=== PATIENT | male | born 1995 | race Hispanic/Latino ===

== ENCOUNTER 2022-08-20 08:57 | Emergency (ER) | payer OTHER ==
[~2022-08-20] VITALS: Ht 190.5 cm; Wt 102.1 kg
[2022-08-20 08:59] VITALS: BP 159/92
[2022-08-20 09:18] LABS: BASOPHILS % (AUTO) 0.3 % (0.0-5.0); EOSINOPHILS % (AUTO) 0.1 % (0.0-8.0); HEMATOCRIT 50.2 % (42-54); MEAN CORPUSCULAR HEMOGLOBIN 31.2 pg (27.0-33.0); MEAN CORPUSCULAR HGB CONC 36.1 g/dL (32.0-36.0); MEAN CORPUSCULAR VOLUME 86.4 fL (79-99); MONOCYTES % (AUTO) 7.2 % (3.0-13.0); NEUTROPHILS % (AUTO) 88.7 % (40.0-77.0); PLATELET COUNT (AUTO) 212 K/uL (130-400); RED BLOOD CELL COUNT(AUTO) 5.81 MIL/uL (4.50-6.20); RED CELL DISTRIBUTION WIDTH 11.9 % (11.0-15.5); WHITE BLOOD COUNT (AUTO) 12.1 K/uL (4.8-10.8)
[2022-08-20 09:20] LABS: APPEARANCE,URINE CLEAR (CLEAR); BILIRUBIN,URINE NEGATIVE (NEGATIVE); COLOR,URINE YELLOW (YELLOW); GLUCOSE, URINE (UA) NEGATIVE (NEGATIVE); KETONES,URINE NEGATIVE (NEGATIVE); LEUKOCYTE ESTERASE ,URINE NEGATIVE Leu/uL (NEGATIVE); NITRATE,URINE NEGATIVE (NEGATIVE); OCCULT BLOOD,URINE NEGATIVE (NEGATIVE); PROTEIN,URINE 30 mg/dL (NEGATIVE); UROBILINOGEN,URINE 0.2 mg/dL (0.2-1.0)
[2022-08-20 09:27] LABS: MUCUS,URINE RARE LPF (None Seen)
[2022-08-20] MEDS ORDERED: 0.9%NACL 1000ML 1,000 ML IV ONE (09:30)
[2022-08-20] MEDS ORDERED: ONDANSETRON 4MG INJ IVP ONE ×2 (09:30)
[2022-08-20] MEDS ORDERED: MAG/ALUM/SIMETH 30 ML UDCUP PO ONE (09:30)
[2022-08-20] MEDS ORDERED: LIDOCAINE HCL 2% VISCOUS 15 ML UDCUP PO ONE (09:30)
[2022-08-20 10:05] LABS: ALANINE AMINOTRANSFERASE 182 U/L (12-78); ASPARTATE AMINOTRANSFERASE 102 U/L (10-37); CARBON DIOXIDE 25 mmol/L (21-32); CHLORIDE 97 mmol/L (101-111); CREATININE 1.1 mg/dL (0.5-1.5); GLOMERULAR FILTR. RATE CALC 94 mL/min (>90); GLUCOSE,RANDOM 102 mg/dL (70-105); POTASSIUM 4.1 mmol/L (3.5-5.1); SODIUM SERUM 131 mmol/L (136-145); UREA NITROGEN, BLOOD 24 mg/dL (7-18)
[2022-08-20 10:15] LABS: LIPASE < 50 U/L (114-286)
[2022-08-20] MEDS ORDERED: DICY10 PO (10:31)
[2022-08-20] MEDS ORDERED: PANT40TA55 PO (10:31)
== END 2022-08-20 10:51 | disposition home or self-care (01) ==
LOC: EDH 08:57
DX: K52.9 Noninfective gastroenteritis and colitis, unspecified (principal); R11.2 Nausea with vomiting, unspecified
CPT/HCPCS: 99283; 96374; 80053; 83690; 85025; 81001; 36415; J7030; J2405

== ENCOUNTER 2023-10-14 20:36 | Emergency (ER) | payer OTHER ==
[~2023-10-14] VITALS: Ht 190.5 cm; Wt 107.0 kg
[~2023-10-14 20:36] MED LIST: DICY10 PO; PANT40TA55 PO
[2023-10-14] MEDS: 0.9%NACL 1000ML 3,210 ML IV ONE (21:07)
[2023-10-14] MEDS: cefTRIAXone 1G VIAL IVPB STA (21:07)
[2023-10-14] MEDS: acetaMINOPHEN 500 MG TABLET PO ONE (21:08)
[2023-10-14 21:09] LABS: APPEARANCE,URINE CLEAR (CLEAR); BILIRUBIN,URINE NEGATIVE (NEGATIVE); COLOR,URINE YELLOW (YELLOW); GLUCOSE, URINE (UA) NEGATIVE (NEGATIVE); KETONES,URINE 10 mg/dL (NEGATIVE); LEUKOCYTE ESTERASE ,URINE NEGATIVE Leu/uL (NEGATIVE); NITRATE,URINE NEGATIVE (NEGATIVE); OCCULT BLOOD,URINE NEGATIVE (NEGATIVE); PH,URINE 6.5 (5.0-8.0); PROTEIN,URINE 20 mg/dL (NEGATIVE)
[2023-10-14 21:09] LABS: BASOPHILS # (AUTO) 0.02 K/uL (0.00-0.20); BASOPHILS % (AUTO) 0.2 % (0.0-5.0); EOSINOPHILS # (AUTO) 0.03 K/uL (0.00-0.70); EOSINOPHILS % (AUTO) 0.3 % (0.0-8.0); HEMATOCRIT 47.6 % (42-54); IMMATURE GRANULOCYTE ABSOLUTE 0.04 K/uL (0-1); LYMPHOCYTES # (AUTO) 0.5 K/uL (1.0-4.8); LYMPHOCYTES % (AUTO) 4.8 % (21.0-51.0); MEAN CORPUSCULAR HEMOGLOBIN 31.9 pg (27.0-33.0); MEAN CORPUSCULAR HGB CONC 36.6 g/dL (32.0-36.0); MEAN CORPUSCULAR VOLUME 87.2 fL (79-99); MONOCYTES # (AUTO) 0.5 K/uL (0.1-1.0); MONOCYTES % (AUTO) 4.9 % (3.0-13.0); NEUTROPHILS # (AUTO) 8.5 K/uL (1.8-7.7); NEUTROPHILS % (AUTO) 89.4 % (40.0-77.0); PLATELET COUNT (AUTO) 183 K/uL (130-400); RED BLOOD CELL COUNT(AUTO) 5.46 MIL/uL (4.50-6.20); RED CELL DISTRIBUTION WIDTH 11.8 % (11.0-15.5); WHITE BLOOD COUNT (AUTO) 9.5 K/uL (4.8-10.8)
[2023-10-14 21:12] LABS: ADD UA MICROSCOPIC YES
[2023-10-14 21:16] LABS: MUCUS,URINE RARE LPF (None Seen); WBC,URINE 0-1 /HPF (0-1)
[2023-10-14 21:23] LABS: CREATININE 1.1 mg/dL (0.5-1.3); POTASSIUM 3.5 mmol/L (3.5-5.1)
[2023-10-14 21:37] VITALS: TEMP 102.1
[2023-10-15 00:36] LABS: RAPID GROUP A STREP negative (NEGATIVE)
[2023-10-15 00:38] LABS: SARS-CoV-2, RNA, NAAT NEGATIVE SARS CoV-2 (NEGATIVE)
[2023-10-15 00:45] LABS: INFLUENZA TYPE A Negative For Type A (NEGATIVE); INFLUENZA TYPE B Negative For Type B (NEGATIVE)
[2023-10-15] MEDS: ONDANSETRON 4MG INJ IVP ONE (01:22)
[2023-10-15] MEDS ORDERED: ONDA-243 PO (01:29)
[2023-10-15] MEDS ORDERED: ACET-66 PO (01:29)
[2023-10-15] MEDS ORDERED: IOHEXOL 350 MG/ML 100ML INFUS..BTL IV ONE (01:58)
[2023-10-15] MEDS: PROMETHAZINE HCL 25 MG/ML 1ML AMPULE IM ONE (03:46)
[2023-10-15 03:55] VITALS: BP 120/66; PULSE 80; RESP 18; O2SAT 98
[2023-10-15] MEDS ORDERED: METR-172 PO (04:50)
[2023-10-15] MEDS ORDERED: CIPR-279 PO (04:50)
== END 2023-10-15 05:29 | disposition home or self-care (01) ==
LOC: EDH 20:36
DX: K52.9 Noninfective gastroenteritis and colitis, unspecified (principal); Z20.822 Contact with and (suspected) exposure to COVID-19; R11.2 Nausea with vomiting, unspecified; K21.9 Gastro-esophageal reflux disease without esophagitis; Z79.899 Other long term (current) drug therapy
CPT/HCPCS: 99285; 96365; 71045; 87635; 82550; 84484; 80048; 83690; 85025; 87040; 87086; 87880; 87804 ×2; 83605; 81001; 36415; 74177; 96375; 96372; J7030; J0696; J2550; J2405; Q9967

== ENCOUNTER 2024-07-17 17:50 | Emergency (ER) | payer OTHER ==
[~2024-07-17] VITALS: Ht 190.5 cm; Wt 111.1 kg
[~2024-07-17 17:50] MED LIST changes: +ACET-66 PO; +CIPR-279 PO; +METR-172 PO; +ONDA-243 PO
[2024-07-17] MEDS ORDERED: acetaMINOPHEN 500 MG TABLET PO ONE (18:00)
[2024-07-17] MEDS: ibuPROFEN 600 MG TABLET PO SCH (18:17)
[2024-07-17] MEDS: 0.9%NACL 1000ML 1,000 ML IV SCH (18:17)
[2024-07-17 18:22] LABS: BASOPHILS # (AUTO) 0.03 K/uL (0.00-0.20); BASOPHILS % (AUTO) 0.2 % (0.0-5.0); HEMATOCRIT 42.1 % (42-54); IMMATURE GRANULOCYTE ABSOLUTE 0.09 K/uL (0-1); LYMPHOCYTES # (AUTO) 0.6 K/uL (1.0-4.8); MEAN CORPUSCULAR HEMOGLOBIN 32.1 pg (27.0-33.0); MEAN CORPUSCULAR HGB CONC 36.6 g/dL (32.0-36.0); MEAN CORPUSCULAR VOLUME 87.7 fL (79-99); MONOCYTES # (AUTO) 1.3 K/uL (0.1-1.0); MONOCYTES % (AUTO) 8.4 % (3.0-13.0); NEUTROPHILS # (AUTO) 13.5 K/uL (1.8-7.7); NEUTROPHILS % (AUTO) 86.8 % (40.0-77.0); PLATELET COUNT (AUTO) 161 K/uL (130-400); WHITE BLOOD COUNT (AUTO) 15.5 K/uL (4.8-10.8)
[2024-07-17 18:28] LABS: CREATININE 1.1 mg/dL (0.5-1.3); POTASSIUM 3.6 mmol/L (3.5-5.1)
[2024-07-17 18:42] LABS: RAPID GROUP A STREP negative (NEGATIVE)
[2024-07-17 18:43] LABS: SARS-CoV-2, RNA, NAAT NEGATIVE SARS CoV-2 (NEGATIVE)
--- NOTE | 2024-07-17 18:45 | ERN ---
General Chief Complaint: Fever Stated Complaint: FEVER Time Seen by MD: 17:52 Source: patient History of Present Illness Initial Comments PATIENT IS A 29-YEAR-OLD MALE COMING IN TO BE EVALUATED FOR FEVER. PATIENT STATES THAT HE STILL FEELS BAD IN HIS ISN'T BEEN BETTER AFTER VISITING HIS PCP. HE SAID HE GOT AN INJECTION. Allergies: Coded Allergies: No Known Drug Allergies (Unverified Allergy, Unknown, 08/20/22) Home Meds Active Scripts Metronidazole (Metronidazole) 500 Mg Tablet, 500 MG PO TID for colitis for 7 Days, #21 TAB Prov:EDI GOODE MD 10/15/23 Ciprofloxacin HCl (Cipro) 250 Mg Tablet, 250 MG PO BID for 7 Days, #14 TAB Prov:EDI GOODE MD 10/15/23 Ondansetron (Ondansetron Odt) 4 Mg Tab.rapdis, 4 MG PO QIDP PRN for NAUSEA, #20 TAB Prov:KERRY MAJOR 10/15/23 Acetaminophen (Acetaminophen) 500 Mg Tablet, 500 MG PO QIDP PRN for FEVER, #30 TAB Prov:KERRY MAJOR 10/15/23 Pantoprazole Sodium (Protonix) 40 Mg Ectab, 40 MG PO DAILY for 30 Days, #30 TAB.EC Prov:VLADIMIR CAST MD 08/20/22 Dicyclomine HCl (Bentyl) 10 Mg Cap, 10 MG PO BID PRN for abd pain for 5 Days, #10 CAP Prov:VLADIMIR CAST MD 08/20/22 Past Medical History Past Medical History: GERD, Other Medical History Other: HX OF GERD Past Surgical History: None Social History Social History: Negative, Lives with family ROS Dictation CONSTITUTIONAL: NO CHILLS, NO FEVER, NO WEAKNESS, NO DIAPHORESIS, NO MALAISE. HEAD/FACE: NO SIGNS OF TRAUMA. EENT: NO EYE PAIN, NO BLURRED VISION, NO TEARING, NO DOUBLE VISION, NO EAR PAIN, NO EAR DISCHARGE, NO NOSE PAIN, NO NASAL CONGESTION, NO THROAT PAIN, NO THROAT SWELLING, NO MOUTH PAIN. RESPIRATORY: NO COUGH, NO ORTHOPNEA, NO SOB, NO STRIDOR, NO WHEEZING. CARDIOVASCULAR: NO CHEST PAIN, NO EDEMA, NO PALPITATIONS, NO SYNCOPE. GASTROINTESTINAL/ABDOMINAL: NO ABDOMINAL PAIN, NO CONSTIPATION, NO DIARRHEA, NO NAUSEA, NO VOMITING. GENITOURINARY: NO ABNORMAL DISCHARGE, NO DYSURIA, NO FREQUENT URINATION, NO HEMATURIA. NO COMPLAINTS OF PAIN IN THE GENITALS. MUSCULOSKELETAL: NO BACK PAIN, NO GOUT, NO JOINT PAIN, NO JOINT SWELLING, NO MUSCLE PAIN, NO MUSCLE STIFFNESS, NO NECK PAIN. INTEGUMENTARY: NO CHANGE IN COLOR, NO CHANGE IN HAIR/NAILS, NO DRYNESS, NO LESION, NO LUMPS, NO RASH. NEUROLOGICAL/PSYCH: NO ANXIETY, NOT DEPRESSED, NO EMOTIONAL PROBLEM, NO HEADACHE, NO NUMBNESS, NO PRE-EXISTING DEFICIT, NO HISTORY OF SEIZURES, NO TREMORS, NO WEAKNESS. HEMATOLOGIC/LYMPHATIC: NOT ANEMIC, NO HISTORY OF BLOOD CLOTS, NO APPARENT BLEEDING, NO BRUISING, GLANDS NOT SWOLLEN. ALL SYSTEMS NEGATIVE, EXCEPT NOTED. Physical Exam Physical Exam Dictation VITAL SIGNS: REVIEWED. GENERAL APPEARANCE: ALERT, ORIENTED X3, NO ACUTE DISTRESS, OBESE. HEAD AND FACE: NON-TRAUMATIC. EYES: PERRL, PINK CONJUNCTIVAS, EYELID NO TRAUMA, ANTERIOR CHAMBER CLEAR. EARS: PINNAS INTACT AND NO SIGNS OF TRAUMA OR ERYTHEMA. EAR CANALS CLEAR AND NO DISCHARGE. TMS NO ERYTHEMA. NOSE: NO DISCHARGE, NO BLEEDING. OROPHARYNX: MOUTH NORMAL, TEETH NO CARIES, TONGUE PINK. PHARYNX CLEAR, NO ERYTHEMA. TONSILS NO EXUDATES, NO ABSCESSES NOTED. MUCOUS MEMBRANE MOIST. NECK: SUPPLE, NON-TENDER, NO THYROMEGALY, NO MASSES, NO JVD, NO BRUITS. BREAST: DEFERRED. CHEST: NO TENDERNESS, NO CREPITUS, NO PARADOXICAL MOVEMENT, NO RETRACTIONS. LUNGS: CLEAR, WELL-VENTILATED, SYMMETRIC, NO RALES, NO WHEEZING, NO RHONCHI, NO STRIDOR, GOOD BREATH SOUNDS BILATERALLY. HEART: REGULAR RATE, REGULAR RHYTHM, NO MURMUR, NO GALLOPS. VASCULAR: NO PERIPHERAL EDEMA. ABDOMEN: SOFT, POSITIVE BOWEL SOUNDS, NONDISTENDED, NO GUARDING, NONTENDER, NO REBOUND, NO MASSES NO HEPATOMEGALY, NO SPLENOMEGALY, NO WHITE'S SIGN, NO HERNIAS. RECTAL: DEFERRED. GENITAL: DEFERRED. NEUROLOGICAL: NORMAL SPEECH, GROSS MOTOR FUNCTION INTACT, GROSS SENSORY FUNCTION INTACT. MUSCULOSKELETAL: NECK NONTENDER, FULL RANGE OF MOTION, BACK NONTENDER, FULL RANGE OF MOTION. EXTREMITIES: NONTENDER, FULL RANGE OF MOTION. SKIN: COLOR PINK, DRY, NO TURGOR, NO RASH, NO LACERATIONS, NO ABRASIONS, NO CONTUSIONS. LYMPHATICS: DEFERRED. Results Laboratory and Microbiology Lab and Micro Result Laboratory Tests Test 07/17/24 18:07 07/17/24 18:09 07/17/24 19:13 White Blood Count 15.5 K/uL (4.8-10.8) H Red Blood Count 4.80 MIL/uL (4.50-6.20) Hemoglobin 15.4 g/dL (14.0-18.0) Hematocrit 42.1 % (42-54) Mean Corpuscular Volume 87.7 fL (79-99) Mean Corpuscular Hemoglobin 32.1 pg (27.0-33.0) Mean Corpuscular Hemoglobin Concent 36.6 g/dL (32.0-36.0) H Red Cell Distribution Width 12.0 % (11.0-15.5) Platelet Count 161 K/uL (130-400) Mean Platelet Volume 10.3 fL (7.5-10.5) Immature Granulocyte % (Auto) 0.6 % (0-1) Neutrophils (%) (Auto) 86.8 % (40.0-77.0) H Lymphocytes (%) (Auto) 4.0 % (21.0-51.0) L Monocytes (%) (Auto) 8.4 % (3.0-13.0) Eosinophils (%) (Auto) 0.0 % (0.0-8.0) Basophils (%) (Auto) 0.2 % (0.0-5.0) Neutrophils # (Auto) 13.5 K/uL (1.8-7.7) H Lymphocytes # (Auto) 0.6 K/uL (1.0-4.8) L Monocytes # (Auto) 1.3 K/uL (0.1-1.0) H Eosinophils # (Auto) 0.00 K/uL (0.00-0.70) Basophils # (Auto) 0.03 K/uL (0.00-0.20) Absolute Immature Granulocyte (auto 0.09 K/uL (0-1) Nucleated Red Blood Cells 0.0 % (0.0-0.19) White Cell Morphology Comment See comments Red Blood Cell Morphology See comments Sodium Level 134 mmol/L (136-145) L Potassium Level 3.6 mmol/L (3.5-5.1) Chloride Level 101 mmol/L (101-111) Carbon Dioxide Level 24 mmol/L (21-32) Blood Urea Nitrogen 18 mg/dL (7-18) Creatinine 1.1 mg/dL (0.5-1.3) Glomerular Filtration Rate Calc 93 mL/min (>90) Random Glucose 110 mg/dL (70-105) H Total Calcium 8.7 mg/dL (8.5-10.1) C-Reactive Protein, Quantitative 50.80 mg/L (0.5-3.0) H Procalcitonin 0.29 ng/mL (0.05-0.5) Influenza Type A Antigen Negative For Type A Influenza Type B Antigen Negative For Type B SARS-CoV-2, RNA, NAAT NEGATIVE SARS CoV-2 Group A Streptococcus Rapid negative (NEGATIVE) Urine Color YELLOW (YELLOW) Urine Appearance CLOUDY (CLEAR) H Urine pH 6.0 (5.0-8.0) Urine Specific Barlow 1.042 (1.001-1.031) Urine Protein 50 mg/dL (NEGATIVE) H Urine Glucose (UA) NEGATIVE mg/dL (NEGATIVE) Urine Ketones 20 mg/dL (NEGATIVE) H Urine Occult Blood SMALL (NEGATIVE) H Urine Nitrate NEGATIVE (NEGATIVE) Urine Bilirubin NEGATIVE mg/dL (NEGATIVE) Urine Urobilinogen 0.2 mg/dL (0.2-1.0) Urine Leukocyte Esterase NEGATIVE Carmen/uL Urine RBC 6-10 /HPF (0-1) H Urine WBC 2-5 /HPF (0-1) H Urine Other Crystals (Auto) 7 /HPF (None Seen) Urine Amorphous Crystals (Auto) RARE /LPF (None Seen) Urine Bacteria RARE /HPF (None Seen) Urine Other Casts 1 /LPF (None Seen) MDM MDM: DIFFERENTIAL DIAGNOSIS: RATIONALE: TESTS CONSIDERED AND ORDERED SECONDARY TO SHARED DECISION MAKING INCLUDE: LABS, ECG AND RADIOLOGY PREVIOUS OUTSIDE RECORDS REVIEWED: OLD ER VISITS. RISK OF COMPLICATION AND/OR MORBIDITY OR MORTALITY OF PATIENT MANAGEMENT: NONE MEDICATIONS-PER MEDICATION RECONCILIATION NEED FOR HOSPITALIZATION: PATIENT DOES MEET CRITERIA FOR HOSPITALIZATION. NEED FOR EMERGENCY MAJOR/MINOR SURGERY: NO THERE ARE NO SOCIAL CONCERNS WITH THIS PATIENT. PRESCRIPTION DRUG MANAGEMENT PRESCRIPTIONS WILL INCLUDE SYMPTOMATIC CARE PATIENT'S PRIOR EXTERNAL MEDICAL RECORDS FROM OTHER ER VISITS WERE REVIEWED BY ME INDICATED. PRIOR TESTING AND RESULTS FROM PREVIOUS VISITS WERE REVIEWED. PRIOR TESTS WERE TAKEN INTO ACCOUNT WITH MEDICAL DECISION MAKING AND RESOURCE UTILIZATION, INDEPENDENT HISTORIAN/HISTORIANS WERE USED TO OBTAIN COMPLETE MEDICAL HISTORY. I INDEPENDENTLY INTERPRETED THE TEST THAT WERE PERFORMED, RESULTS WERE REVIEWED BY ME AND CONSIDERED FINDINGS ON RADIOLOGY IF ORDERED. MEDICAL MANAGEMENT AND EXAMINATION INTERPRETATION DISCUSSIONS WERE HAD BY ME WITH OTHER QUALIFIED HEALTHCARE PROFESSIONALS INDICATED FOR THE PATIENT'S CARE. Patient's nasal swabs were negative for COVID strep and influenza. Chest x-ray is also negative. Looking at the chest x-ray you can see dilated loops of large bowel and small bowel consistent with a an ileus. Patient did have a elevated white blood cell count of 15. Along with a mild left shift. Chemistry panel is negative. Urine analysis is also negative. I ordered a CRP and a procalcitonin. The CRP was elevated a procalcitonin was low. Patient most likely does not have a bacterial infection and is at low risk for sepsis. I explained all of this to the patient. Given the amount of time that has passed since the KUB was ordered we decided to have him follow-up with his family practice doctor and defer the KUB. ED Course Orders Procedure Category Date Status Time Cbc With Differential LAB 07/17/24 Complete 17:55 Basic Metabolic Panel LAB 07/17/24 Complete 17:55 Urinalysis LAB 07/17/24 Complete W/Microscopic 17:55 Covid Rna Naat LAB 07/17/24 Complete 17:55 Influenza Type A & B, LAB 07/17/24 Complete Rapid 17:55 Rapid (Group A Strep) LAB 07/17/24 Complete 17:55 0.9%Nacl 1000ml (Ns PHA 07/17/24 In Process 1000ml) 18:00 Acetaminophen 500mg PHA 07/17/24 Complete Tab (Tylenol 500mg T 18:00 Ibuprofen 600 Mg PHA 07/17/24 In Process Tablet (Motrin) 18:30 Chest 1vw RAD 07/17/24 Taken 19:42 Crp Quantitative LAB 07/17/24 Complete 19:52 Procalcitonin LAB 07/17/24 Complete 19:52 Abd 1vw RAD 07/17/24 Logged 20:47 Current Medications Medications (Trade) Dose Ordered Sig/Mary Route PRN Reason Start Time Stop Time Status Last Admin Dose Admin Acetaminophen (TYLenol 500MG TAB) 1,000 mg ONCE ONCE PO 07/17/24 18:00 07/17/24 18:11 DC Ibuprofen (moTRIN) 600 mg ONCE PO 07/17/24 18:30 07/17/24 22:30 07/17/24 18:17 Sodium Chloride 1,000 ml @ 0 mls/hr ONCE IV 07/17/24 18:00 07/18/24 17:59 07/17/24 18:17 Vital Signs Date Time Temp Pulse Resp B/P (MAP) Pulse Ox O2 Delivery O2 Flow Rate FiO2 07/17/24 20:24 99.1 84 18 108/62 97 Room Air* 0 21 07/17/24 19:15 100.0 96 18 114/69 97 Room Air* 0 07/17/24 18:06 101.5 117 18 99/67 97 Room Air* 0 07/17/24 17:55 101.5 117 18 99/67 97 Room Air 0 DX & DISP Disposition: Discharge Departure Impression: Primary Impression: Viral syndrome Condition: Stable Additional Instructions: Please return to the hospital if you do not start to improve in the next few days. Your fever can be controlled with Tylenol or Motrin. There was no need for antibiotics as you procalcitonin level is normal. Please return if you do not improve in the next few days. Referrals: SELF,REFERRAL (PCP) VLADIMIR CAST MD Jul 17, 2024 18:45 VANGIE NOEL MD Jul 17, 2024 21:53
[2024-07-17 18:52] LABS: INFLUENZA TYPE A Negative For Type A (NEGATIVE); INFLUENZA TYPE B Negative For Type B (NEGATIVE)
[2024-07-17 19:18] LABS: APPEARANCE,URINE CLOUDY (CLEAR); BILIRUBIN,URINE NEGATIVE (NEGATIVE); COLOR,URINE YELLOW (YELLOW); GLUCOSE, URINE (UA) NEGATIVE (NEGATIVE); KETONES,URINE 20 mg/dL (NEGATIVE); LEUKOCYTE ESTERASE ,URINE NEGATIVE Leu/uL (NEGATIVE); NITRATE,URINE NEGATIVE (NEGATIVE); OCCULT BLOOD,URINE SMALL (NEGATIVE); PROTEIN,URINE 50 mg/dL (NEGATIVE); UROBILINOGEN,URINE 0.2 mg/dL (0.2-1.0)
[2024-07-17 19:26] LABS: BACTERIA,URINE RARE /HPF (None Seen); MUCUS,URINE RARE LPF (None Seen); OTHER CASTS, URINE 1 /LPF (None Seen); UNCLASSIFIED CRYSTAL 7 /HPF (None Seen)
--- NOTE | 2024-07-17 21:56 | HMCIMG ---
INDICATION: cough fever TECHNIQUE: CHEST 1VW COMPARISON: 10/14/2023 FINDINGS AND IMPRESSION: Prominent bibasilar interstitial markings which may represent bronchitis or vascular congestion in the proper clinical setting. Cardiac silhouette is within normal limits. Mild degenerative changes of the spine. The visualized upper abdomen appears unremarkable.
[2024-07-17 21:57] VITALS: BP 111/58; PULSE 81; RESP 18; TEMP 98.2; O2SAT 97
== END 2024-07-17 21:58 | disposition home or self-care (01) ==
LOC: EDH 17:50
DX: B34.9 Viral infection, unspecified (principal); Z79.899 Other long term (current) drug therapy; Z20.822 Contact with and (suspected) exposure to COVID-19
CPT/HCPCS: 99284; 71045; 87635; 80048; 85025; 87880; 87804 ×2; 86140; 81001; 36415; 84145; J7030

== ENCOUNTER 2024-11-08 09:10 | Emergency (ER) | payer OTHER ==
[~2024-11-08] VITALS: Ht 190.5 cm; Wt 106.6 kg
--- NOTE | 2024-11-08 10:12 | ERN ---
General Chief Complaint: Ankle Problem Stated Complaint: LEFT ANKLE PAIN Time Seen by MD: 09:15 History of Present Illness Initial Comments 29-year-old male, otherwise healthy, presents for left ankle pain injury. Twisted his ankle yesterday. He woke up this morning with the pain and swelling to the lateral ankle. No high fibular head pain. Pain is in the lateral ankle and lateral foot. Closed. Neurovascularly intact. Allergies: Coded Allergies: No Known Drug Allergies (Unverified Allergy, Unknown, 08/20/22) Home Meds Active Scripts Metronidazole (Metronidazole) 500 Mg Tablet, 500 MG PO TID for colitis for 7 Days, #21 TAB Prov:EDI GOODE MD 10/15/23 Ciprofloxacin HCl (Cipro) 250 Mg Tablet, 250 MG PO BID for 7 Days, #14 TAB Prov:EDI GOODE MD 10/15/23 Ondansetron (Ondansetron Odt) 4 Mg Tab.rapdis, 4 MG PO QIDP PRN for NAUSEA, #20 TAB Prov:KERRY MAJOR 10/15/23 Acetaminophen (Acetaminophen) 500 Mg Tablet, 500 MG PO QIDP PRN for FEVER, #30 TAB Prov:KERRY MAJOR 10/15/23 Pantoprazole Sodium (Protonix) 40 Mg Ectab, 40 MG PO DAILY for 30 Days, #30 TAB.EC Prov:VLADIMIR CAST MD 08/20/22 Dicyclomine HCl (Bentyl) 10 Mg Cap, 10 MG PO BID PRN for abd pain for 5 Days, #10 CAP Prov:VLADIMIR CAST MD 08/20/22 Past Medical History Past Medical History: GERD, Other Medical History Other: HX OF GERD Past Surgical History: None Social History Social History: Negative, Lives with family ROS Dictation CONSTITUTIONAL: No chills, no fever, no weakness, no diaphoresis, no malaise. HEAD/FACE: No signs of trauma. EENT: No eye pain, no blurred vision, no tearing, no double vision, no ear pain, no ear discharge, no nose pain, no nasal congestion, no throat pain, no throat swelling, no mouth pain. RESPIRATORY: No cough, no orthopnea, no SOB, no stridor, no wheezing. CARDIOVASCULAR: No chest pain, no edema, no palpitations, no syncope. GASTROINTESTINAL/ABDOMINAL: No abdominal pain, no constipation, no diarrhea, no nausea, no vomiting. GENITOURINARY: No abnormal discharge, no dysuria, no frequent urination, no hematuria. No complaints of pain in the genitals. MUSCULOSKELETAL: Left ankle pain INTEGUMENTARY: No change in color, no change in hair/nails, no dryness, no lesion, no lumps, no rash. NEUROLOGICAL/PSYCH: No anxiety, not depressed, no emotional problem, no headache, no numbness, no pre-existing deficit, no history of seizures, no tremors, no weakness. HEMATOLOGIC/LYMPHATIC: Not anemic, no history of blood clots, no apparent bleeding, no bruising, glands not swollen. All Systems Negative, Except as Noted. Physical Exam Physical Exam Dictation VITAL SIGNS: Reviewed. GENERAL APPEARANCE: Alert, oriented x3, no acute distress HEAD AND FACE: Non-traumatic. EYES: PERRL, pink conjunctivas, eyelid no trauma, anterior chamber clear. EARS: Pinnas intact and no signs of trauma or erythema. Ear canals clear and no discharge. TMs no erythema. NOSE: No discharge, no bleeding. OROPHARYNX: Mouth normal, teeth no caries, tongue pink. Pharynx clear, no erythema. Tonsils no exudates, no abscesses noted. Mucous membrane moist. NECK: Supple, non-tender, no thyromegaly, no masses, no JVD, no bruits. BREAST: Deferred. CHEST: No tenderness, no crepitus, no paradoxical movement, no retractions. LUNGS: Clear, well-ventilated, symmetric, no rales, no wheezing, no rhonchi, no stridor, good breath sounds bilaterally. HEART: Regular rate, regular rhythm, no murmur, no gallops. VASCULAR: No peripheral edema. ABDOMEN: Soft, positive bowel sounds, nondistended, no guarding, nontender, no rebound, no masses no hepatomegaly, no splenomegaly, no Watson's sign, no hernias. RECTAL: Deferred. GENITAL: Deferred. NEUROLOGICAL: Normal speech, gross motor function intact, gross sensory function intact. MUSCULOSKELETAL: Neck nontender, full range of motion, back nontender, full range of motion. EXTREMITIES: Nontender, full range of motion. Left ankle swelling SKIN: Color pink, dry, no turgor, no rash, no lacerations, no abrasions, no contusions. LYMPHATICS: Deferred. MDM CC: Left ankle pain/injury Historian: Patient Comorbidities: None Limitations by social determinants of health: None Differential diagnosis: Ankle sprain versus strain versus fracture Vital signs are stable Neurovascularly intact Pain to the lateral malleolus. No signs of high fibular head pain. No foot pain or faint with the base of the 5th toe. X-ray per my independent interpretation shows no bony abnormality Symptoms most consistent with a high-grade strain. Given a cam boot here in the ER. We will discharge with conservative management and orthopedic follow up. ED Course Orders Procedure Category Date Status Time Ankle Comp 3vws Lt RAD 11/08/24 Taken 09:16 Vital Signs Date Time Temp Pulse Resp B/P (MAP) Pulse Ox O2 Delivery O2 Flow Rate FiO2 11/08/24 09:11 98.1 74 16 134/69 98 Room Air DX & DISP Disposition: Discharge Departure Impression: Primary Impression: Left ankle sprain Condition: Stable Additional Instructions: The x-ray does not show any fractures. Your symptoms are most consistent with a high-grade ankle sprain/strain. Wear the Cam boot they have been provided. You can take 800 mg of ibuprofen up to 3 times a day for pain inflammation. You can also take 1000 mg of Tylenol up to 3 times a day for pain. I recommend that you ice the ankle for at least 30 minutes 3 times per day for the next two days. This will reduce inflammation and swelling. You will likely need to follow up with the an orthopedist or your primary doctor. I have given you a referral to an orthopedist. Please return to the emergency department if you have any concerns. Referrals: NICOLE ROMAN MD (PCP) JULES DAVE RYAN E DO Nov 08, 2024 10:12
--- NOTE | 2024-11-08 10:27 | NUR ---
PLACED ORTHO BOOT TO LEFT LOWER EXTREMITY PER MD VERBAL ORDER.
--- NOTE | 2024-11-08 10:51 | HMCIMG ---
EXAM: CR right ankle, 3 View. CLINICAL HISTORY: ankle sprain/injury COMPARISON: None provided. FINDINGS: BONES: No acute fracture or aggressive appearing osseous lesion. Moderate size spur at the insertion site of the Achilles tendon on the dorsal calcaneus. JOINTS: The joint spaces appear within normal limits. No dislocation. No radiographic evidence of a joint effusion. SOFT TISSUES: Mild predominantly lateral soft tissue swelling of the ankle. IMPRESSION: No acute osseous abnormality. Mild soft tissue swelling of the lateral ankle. /Avery
[2024-11-08 11:17] VITALS: BP 125/66; PULSE 71; RESP 17; TEMP 98.2; O2SAT 99
== END 2024-11-08 12:42 | disposition home or self-care (01) ==
LOC: EDH 09:10
DX: S93.402A Sprain of unspecified ligament of left ankle, initial encounter (principal); Z79.899 Other long term (current) drug therapy; X50.1XXA Overexertion from prolonged static or awkward postures, initial encounter; Y93.89 Activity, other specified; Y92.89 Other specified places as the place of occurrence of the external cause; Y99.8 Other external cause status
CPT/HCPCS: 73610; 99283